=== PATIENT | male | born 1940 | race Caucasian/White ===

== ENCOUNTER → 2024-03-10 13:17 | Outpatient (CLI) | payer MEDICARE, OTHER, SELFPAY ==
--- NOTE | 2024-03-10 13:27 | DI.RAD.S_ITS ---
PROCEDURE: XR SHOULDER RT MIN 2V INDICATIONS: Pain in Shoulder and Foot Pain TECHNIQUE: 3 views of the shoulder were acquired. COMPARISON: None. FINDINGS: Bones: No fractures or dislocations. No suspicious bony lesions. Gbxz-[id number] degenerative changes. Visualized ribs appear intact. Soft tissues: No suspicious soft tissue calcifications. IMPRESSION: [id number] right shoulder DJD. Dictated by: Brian Otoole M.D. on 03/11/2024 at 10:25 Approved by: Brian Otoole M.D. on 03/11/2024 at 10:30
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
== END ==
PROVIDERS: Family Provider Family Medicine; PCP Family Medicine; Referring Provider Family Medicine; Visit Provider Family Medicine
DX: M19.011 Primary osteoarthritis, right shoulder (principal); M25.511 Pain in right shoulder; M79.672 Pain in left foot
CPT/HCPCS: 73030; 73620

== ENCOUNTER 2024-05-02 16:06 | Emergency (ER) | payer MEDICARE, OTHER, SELFPAY ==
[2024-05-02 16:11] VITALS: BP 152/85; PULSE 68; RESP 18; TEMP 36.2; O2SAT 97; BMI 23.4
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
[2024-05-02 17:31] VITALS: PULSE 73; O2SAT 97
--- NOTE | 2024-05-02 17:51 | PC.NURSE ---
Assumed cares of this pt at this time. Pt awake and alert. Cleansed left elbow, left knee and posterior right knee. Pt tolerated fair.
[2024-05-02] MEDS: BACITRACIN OINT 0.9 GM PCKT 5 APPLIC TOP (17:58)
[2024-05-02] MEDS: TET,DIPH,PERTUSS(ACELL),VAC/PF 0.5 ML SYRINGE IM (17:58)
[2024-05-02 18:00] VITALS: BP 193/90; PULSE 70; O2SAT 97
[2024-05-02 18:30] VITALS: BP 156/94; PULSE 70; O2SAT 97
[2024-05-02] MEDS: ONDANSETRON 4 MG ODT SL (18:50)
[2024-05-02] MEDS: HYDROCODONE/ACET 5/325 TABLET 1 TAB PO (18:50)
[2024-05-02 19:09] VITALS: BP 154/78; PULSE 85; RESP 16; O2SAT 98
== END 2024-05-02 19:10 | disposition home or self-care (01) ==
PROVIDERS: Emergency Provider Emergency Medicine; Family Provider Family Medicine; PCP Family Medicine
DX: S46.912A Strain of unspecified muscle, fascia and tendon at shoulder and upper arm level, left arm, initial encounter (principal); S39.012A Strain of muscle, fascia and tendon of lower back, initial encounter; S50.312A Abrasion of left elbow, initial encounter; S80.212A Abrasion, left knee, initial encounter; S80.211A Abrasion, right knee, initial encounter; V18.0XXA Pedal cycle driver injured in noncollision transport accident in nontraffic accident, initial encounter; Y93.55 Activity, bike riding; Z23 Encounter for immunization
CPT/HCPCS: 36415; 70450; 71260; 72125; 73030; 73080; 74177; 90471; 99284; 90715; Q9967